=== PATIENT | female | born 1950 | race American Indian/Alaskan Native ===

== ENCOUNTER 2020-05-02 13:47 | Emergency (ER) | payer SELFPAY ==
[2020-05-02 15:02] VITALS: BP 123/46
--- NOTE | 2020-05-02 15:49 | XRay Report ---
RIGHT KNEE 4 VIEW(S) INDICATION / CLINICAL INFORMATION: dislocation injury COMPARISON: None available. FINDINGS: BONES / JOINT(S): Acute, comminuted, distracted, transverse fracture through the patella. Approximate ly 6.5 cm of distraction on flexion view and only 1-2 cm of distraction on extension view. Moderate d egenerative change. SOFT TISSUES: Mild hematoma and edema in the region of the fractured patella. ADDITIONAL FINDINGS: None. IMPRESSION: 1. Acute, comminuted, distracted, transverse fracture through the patella. Signer Name: Jonnathan Feng MD Signed: 05/02/2020 3:45 PM Workstation Name: [id number]
[2020-05-02] MEDS ORDERED: fentaNYL 100 MCG/2 ML INJ IV ONE (16:11)
[2020-05-02] MEDS ORDERED: oxyCODONE /ACETAMINOPHEN 5-325MG TAB PO ONE (16:37)
--- NOTE | 2020-05-02 16:50 | Emergency Department Report ---
ED Extremity Problem HPI - General Chief complaint: Extremity Injury, Lower Stated complaint: FALL RT KNEE INJURY Time Seen by Provider: 05/02/20 14:56 Source: patient Mode of arrival: Wheelchair Limitations: No Limitations - History of Present Illness Initial comments: Patient is a 69-year-old female presents to emergency department with complaint of right knee pain. She is also unable to extend her knee. Patient states that she tripped and fell over a bookshelf and then directly hit her right knee on the floor. She did not have loss of consciousness. She only reports right knee pain. She states she has been unable to walk due to her leg buckling. Severity scale (0 -10): 10 - Related Data Home Medications Medication Instructions Recorded Confirmed Last Taken Aspirin 10/24/15 10/24/15 Previous Rx's Medication Instructions Recorded Last Taken Type Clindamycin [Clindamycin CAP] 300 mg PO Q6H #40 capsule 10/24/15 Unknown Rx traMADoL [Ultram] 50 mg PO Q6HR PRN #12 tablet 10/24/15 Unknown Rx Ondansetron [Zofran Odt] 4 mg PO Q8HR PRN 7 Days #12 05/02/20 Unknown Rx tab.rapdis oxyCODONE /ACETAMINOPHEN [Percocet 1 tab PO Q6HR PRN 7 Days #28 tablet 05/02/20 Unknown Rx 5/325] Allergies Allergy/AdvReac Type Severity Reaction Status Date / Time No Known Allergies Allergy Verified 10/24/15 09:35 ED Review of Systems ROS: Stated complaint: FALL RT KNEE INJURY Other details as noted in HPI Constitutional: denies: diaphoresis Eyes: denies: eye discharge ENT: denies: throat pain Respiratory: denies: cough, shortness of breath Cardiovascular: denies: chest pain Endocrine: no symptoms reported Gastrointestinal: denies: abdominal pain, nausea, vomiting Genitourinary: denies: dysuria Musculoskeletal: as per HPI, joint swelling. denies: back pain Skin: denies: rash Neurological: denies: headache, weakness Psychiatric: denies: anxiety, depression Hematological/Lymphatic: denies: easy bleeding ED Past Medical Hx - Past Medical History Previous Medical History?: Yes Additional medical history: Sinusitis - Surgical History Past Surgical History?: No - Social History Smoking Status: Never Smoker Substance Use Type: None - Medications Home Medications: Home Medications Medication Instructions Recorded Confirmed Last Taken Type Aspirin 10/24/15 10/24/15 History Clindamycin [Clindamycin CAP] 300 mg PO Q6H #40 capsule 10/24/15 Unknown Rx traMADoL [Ultram] 50 mg PO Q6HR PRN #12 tablet 10/24/15 Unknown Rx Ondansetron [Zofran Odt] 4 mg PO Q8HR PRN 7 Days #12 05/02/20 Unknown Rx tab.rapdis oxyCODONE /ACETAMINOPHEN [Percocet 1 tab PO Q6HR PRN 7 Days #28 tablet 05/02/20 Unknown Rx 5/325] ED Physical Exam - General Limitations: No Limitations General appearance: alert, in no apparent distress - Head Head exam: Present: atraumatic, normocephalic - Eye Eye exam: Present: normal appearance Pupils: Present: normal accommodation - ENT ENT exam: Present: normal exam - Neck Neck exam: Present: normal inspection - Respiratory Respiratory exam: Present: normal lung sounds bilaterally. Absent: respiratory distress, chest wall tenderness - Cardiovascular Cardiovascular Exam: Present: regular rate, normal rhythm, normal heart sounds - GI/Abdominal GI/Abdominal exam: Present: soft. Absent: distended, tenderness - Rectal Rectal exam: Present: deferred - Expanded Lower Extremity Exam Right Knee exam: Present: tenderness, swelling, deformity, effusion. Absent: laceration, full knee extension - Back Exam Back exam: Present: normal inspection - Neurological Exam Neurological exam: Present: alert, oriented X3 - Psychiatric Psychiatric exam: Present: normal affect - Skin Skin exam: Present: warm, dry, intact ED Course Vital Signs 05/02/20 14:59 Temperature 98.6 F Pulse Rate 87 Respiratory 20 Rate Blood Pressure 123/46 O2 Sat by Pulse 97 Oximetry - Consultations Consultation #1: 05/02/20 16:56 Given patient's inability to extend her knee and her high riding patella I am concerned she could have a quadriceps tendon rupture. I have consulted Dr. Hill who will review patient's images and give recommendations. Consultation #2: 05/02/20 17:55 Plan for discharge with patient to follow-up with Dr. Hill on Monday in the office and possibly undergo surgery on . ED Medical Decision Making - Medical Decision Making 69-year-old female presents emergency department with complaint of right knee pain. Patient fell directly on her right knee. She is unable to extend the knee. X-ray shows patella fracture. I have also concerned that she could have a quadriceps tendon rupture. I have consulted Dr. Hill who will give further recommendations after reviewing the patient's images. Critical care attestation.: If time is entered above; I have spent that time in minutes in the direct care of this critically ill patient, excluding procedure time. ED Disposition Clinical Impression: Patella fracture Disposition: - TO HOME OR SELFCARE Is pt being admited?: No Does the pt Need Aspirin: No Condition: Stable Instructions: Patellar Fracture, Adult Prescriptions: oxyCODONE /ACETAMINOPHEN [Percocet 5/325] 1 tab PO Q6HR PRN 7 Days #28 tablet PRN Reason: Pain Ondansetron [Zofran Odt] 4 mg PO Q8HR PRN 7 Days #12 tab.rapdis PRN Reason: Nausea And Vomiting Referrals: PRIMARY CARE, [Primary Care Provider] - 3-5 Days UDAY HILL MD [Staff Physician] - [place] (Go on Monday, Likely to have surgery on )
== END 2020-05-02 18:44 | disposition home or self-care (01) ==
LOC: ED 13:47
DX: S82.001A Unspecified fracture of right patella, initial encounter for closed fracture (principal); Z79.899 Other long term (current) drug therapy; W17.89XA Other fall from one level to another, initial encounter; Y93.89 Activity, other specified; Y92.89 Other specified places as the place of occurrence of the external cause; Y99.8 Other external cause status
CPT/HCPCS: 73564; 99283; J3010

== ENCOUNTER 2020-09-09 13:15 | Outpatient (CLI) | payer MEDICAID, MEDICARE ==
[2020-09-09] MEDS ORDERED: LIDOCAINE (4%) 40 MG/ML TOPICAL SOLN 50 ML BOTTLE TP ONE (14:31)
== END 2020-09-09 13:16 | disposition home or self-care (01) ==
LOC: WOUND 13:15
PROVIDERS: ATTEND Surgery
DX: E11.622 Type 2 diabetes mellitus with other skin ulcer (principal); L97.213 Non-pressure chronic ulcer of right calf with necrosis of muscle; Z87.891 Personal history of nicotine dependence
CPT/HCPCS: 11043; G0463; 99214

== ENCOUNTER 2020-10-05 13:14 | Outpatient (CLI) | payer MEDICAID, MEDICARE ==
--- NOTE | 2020-10-05 14:20 | XRay Report ---
RIGHT KNEE 2 VIEWS INDICATION: unspecified fracture of right patella. COMPARISON: 06/08/2020. 06/11/2020. IMPRESSION: The previously described patellar fracture was internally fixated with 2 orthopedic scre ws on 06/11/2020. The lateral screw is fractured which is a new finding since surgery. The inferior p atellar fragment has dislodged from the hardware. There is 3.5 cm separation at the patellar fracture site on today's exam. The remaining bony structures are intact. Moderate tricompartmental osteoarthr itic changes are noted. Small to medium joint effusion. Signer Name: Eamon Nuñez Jr, MD Signed: 10/05/2020 2:15 PM Workstation Name: [id number]
== END 2020-10-05 13:15 | disposition home or self-care (01) ==
LOC: XRAY 13:14
PROVIDERS: ATTEND Orthopaedic Surgery
DX: S82.001A Unspecified fracture of right patella, initial encounter for closed fracture (principal); M17.11 Unilateral primary osteoarthritis, right knee; M25.461 Effusion, right knee; X58.XXXA Exposure to other specified factors, initial encounter; Y93.89 Activity, other specified; Y92.89 Other specified places as the place of occurrence of the external cause; Y99.8 Other external cause status

== ENCOUNTER 2020-10-14 10:12 | Outpatient (CLI) | payer MEDICAID, MEDICARE ==
[2020-10-14] MEDS ORDERED: LIDOCAINE (4%) 40 MG/ML TOPICAL SOLN 50 ML BOTTLE TP ONE (10:58)
== END 2020-10-14 10:13 | disposition home or self-care (01) ==
LOC: WOUND 10:12
PROVIDERS: ATTEND Surgery
DX: E11.622 Type 2 diabetes mellitus with other skin ulcer (principal); L97.213 Non-pressure chronic ulcer of right calf with necrosis of muscle; L84 Corns and callosities; Z87.891 Personal history of nicotine dependence

== ENCOUNTER 2020-10-21 10:50 | Outpatient (CLI) | payer MEDICAID, MEDICARE ==
[2020-10-21] MEDS ORDERED: LIDOCAINE (4%) 40 MG/ML TOPICAL SOLN 50 ML BOTTLE TP ONE (14:10)
== END 2020-10-21 10:51 | disposition home or self-care (01) ==
LOC: WOUND 10:50
PROVIDERS: ATTEND Surgery
DX: E11.622 Type 2 diabetes mellitus with other skin ulcer (principal); L97.212 Non-pressure chronic ulcer of right calf with fat layer exposed; L84 Corns and callosities; Z87.891 Personal history of nicotine dependence

== ENCOUNTER 2020-10-29 08:09 | Day surgery (SDC) | payer MEDICARE ==
[2020-10-27 12:10] LABS: BUN/Creatinine Ratio 36; Blood Urea Nitrogen 18 mg/dL (7-17); Calcium 9.5 mg/dL (8.4-10.2); Hemolysis Index 13
[2020-10-27 12:26] LABS: Hematocrit 32.7 % (30.3-42.9); Hemoglobin 10.9 gm/dl (10.1-14.3); Mean Corpuscular HGB Conc 33 % (30-34); Mean Corpuscular Volume 84 fl (79-97); Platelet Count 220 K/mm3 (140-440); Red Blood Count 3.89 M/mm3 (3.65-5.03); Red Cell Distribution Width 14.8 % (13.2-15.2)
[~2020-10-29 08:09] MED LIST: LIDOCAINE MPF (2%) 20 MG/1 ML VIAL 5 ML ONE; fentaNYL 100 MCG/2 ML INJ ONE; propofoL 200 MG/20 ML VIAL IV ONE
[2020-10-29] MEDS ORDERED: LACTATED RINGERS 1,000 ML IV SCH (08:30)
[2020-10-29] MEDS ORDERED: BACTERIOSTATIC SODIUM CHLORIDE 0.9% 30 ML VIAL INFILTRATI ONE (08:30)
[2020-10-29] MEDS ORDERED: MIDAZOLAM 2 MG/2 ML INJ IV SCH (09:00)
[2020-10-29] MEDS ORDERED: ceFAZolin/STERILE WATER 2 GM/20 ML SYRINGE IV SCH (09:00)
--- NOTE | 2020-10-29 09:04 | Anesthesia Day of Surgery ---
Anesthesia Day of Surgery - Day of Surgery Patient Examined: Yes Patient H&P Reviewed: Yes Patient is NPO: Yes
--- NOTE | 2020-10-29 09:05 | Anesthesia Consultation ---
Anesthesia Consult and Med Hx Date of service: 10/29/20 - Airway Anesthetic Teeth Evaluation: Good, Dentures, Edentulous (Upper) ROM Head & Neck: Adequate Mental/Hyoid Distance: Adequate Mallampati Class: Class II Intubation Access Assessment: Good - Pre-Operative Health Status ASA Pre-Surgery Classification: ASA2 Proposed Anesthetic Plan: General Nerve Block: Femoral (if needed) - Pulmonary Hx Smoking: Yes (STOPPED 1993) Hx Respiratory Symptoms: No (Active;+2FS) SOB: No Hx Sleep Apnea: (SELMA PRE SCREEN LOW RISK) - Cardiovascular System Hx Hypertension: No - Endocrine Hx Renal Disease: No Hx Liver Disease: No Hx Non-Insulin Dependent Diabetes: Yes Hx Thyroid Disease: No - Hematic Hx Anemia: No Hx Sickle Cell Disease: No - Other Systems Hx Alcohol Use: Yes (BEER) Hx Cancer: No Hx Obesity: No
[2020-10-29] MEDS ORDERED: MIDAZOLAM 2 MG/2 ML INJ ONE (09:07)
[2020-10-29] MEDS ORDERED: SODIUM CHLORIDE 0.9% IRR 1,000 ML BOTTLE IR ONE (09:53)
[2020-10-29] MEDS ORDERED: ONDANSETRON 4 MG/2 ML INJ IV PRN (10:00)
[2020-10-29] MEDS ORDERED: HYDROmorphone 1 MG/1 ML INJ IV PRN ×2 (10:00)
[2020-10-29] MEDS ORDERED: PHENYLEPHRINE/NS 1,000 MCG/10 ML SYRINGE (OR USE) IV ONE (10:19)
[2020-10-29] MEDS ORDERED: BUPIVACAINE/PF (0.5%) 5 MG/1 ML 30 ML VIAL INFILTRATI ONE (10:58)
[2020-10-29] MEDS ORDERED: dexAMETHasone 4 MG/ML VIAL ONE (10:58)
[2020-10-29] MEDS ORDERED: ONDANSETRON 4 MG/2 ML INJ ONE (11:17)
--- NOTE | 2020-10-29 12:39 | Procedure Note ---
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 Next the leg was then exsanguinated followed by inflation of the pneumatic tourniquet to 300 mmHg utilizing the previous midline incision this was then taken down sharply through skin and subcu care was taken to develop the skin flaps and more deeper level to prevent skin sloughing the patella patella tendon quad tendons were all seen patient was noted to have screws that were backing out the screws were removed in addition there was interposition scar tissue which was excised as well following this wound was copiously irrigated there was no signs of infection using a number oh 5 Ethibond suture a Fairchild type stitch was made in the patella tendon and utilizing the previous tunnel the #5 Ethibond sutures were placed through the patella proximally and was sewn down with the knee in full extension the patella tendon patella construct appeared stable next the parapatellar retinaculum was repaired with #1 Vicryl the skin was then closed in a standard routine fashion postop dressings were applied as well as a well- padded cylinder cast for postop immobilization patient tolerated the procedure there were no complications she was sent to postanesthesia recovery in a stable condition Anesthesia: MAC, regional Surgeon: UDAY ADEN (Dafne De Leon M.D. 1st assist) Estimated blood loss: minimal Pathology: list (Inferior pole patella, 1-1/2 screws) Specimen disposition: to lab Condition: stable Disposition: PACU
[2020-10-29 13:51] VITALS: BP 146/78
--- NOTE | 2020-10-29 14:16 | Post Anesthesia Evaluation ---
- Post Anesthesia Evaluation Patient Participated: Yes Airway Patent: Yes Stable Respiratory Function: Yes Nausea/Vomiting: No Temp > 96.8F: Yes Pain Manageable: Yes Adequeate Hydration: Yes Anesthesia Complications: No Block Receding Appropriately: Yes Patient on Ventilator: No
== END 2020-10-29 13:45 | disposition home or self-care (01) ==
LOC: OR 08:09
PROVIDERS: ATTEND Orthopaedic Surgery
DX: S82.091 Other fracture of right patella (principal); Z20.822 Contact with and (suspected) exposure to COVID-19; E78.00 Pure hypercholesterolemia, unspecified; G47.30 Sleep apnea, unspecified; M19.90 Unspecified osteoarthritis, unspecified site; E11.9 Type 2 diabetes mellitus without complications; Z72.89 Other problems related to lifestyle; Z79.899 Other long term (current) drug therapy; Z79.84 Long term (current) use of oral hypoglycemic drugs; Z87.891 Personal history of nicotine dependence; Z91.81 History of falling; X58.XXXD Exposure to other specified factors, subsequent encounter
CPT/HCPCS: 27524; 36415; 64447; 80048; 82962; 85027; 88300; 88304; 88311; J0690; J1100; J2250; J2370; J2405; J2704; J3010; J7120; U0003; 88302

== ENCOUNTER 2021-01-13 13:19 | Outpatient (CLI) | payer MEDICARE, MEDICAID ==
[2021-01-13] MEDS ORDERED: LIDOCAINE (4%) 40 MG/ML TOPICAL SOLN 50 ML BOTTLE TP ONE (14:00)
== END 2021-01-13 13:20 | disposition home or self-care (01) ==
LOC: WOUND 13:19
PROVIDERS: ATTEND Surgery
DX: E11.622 Type 2 diabetes mellitus with other skin ulcer (principal); L97.218 Non-pressure chronic ulcer of right calf with other specified severity; Z87.891 Personal history of nicotine dependence; Z79.84 Long term (current) use of oral hypoglycemic drugs
CPT/HCPCS: G0463-25

== ENCOUNTER 2021-06-09 16:28 | Emergency (ER) | payer MEDICARE ==
[2021-06-09] MEDS ORDERED: predniSONE 20 MG TAB PO ONE (19:00)
[2021-06-09] MEDS ORDERED: KETOROLAC 10 MG TAB PO ONE (19:00)
[2021-06-09] MEDS ORDERED: CYCLOBENZAPRINE 10 MG TAB PO ONE (19:00)
--- NOTE | 2021-06-09 19:06 | Emergency Department Report ---
ED Neck Pain/Injury HPI - General Chief Complaint: Pain General Stated Complaint: PAIN IN LT LEG Time Seen by Provider: 06/09/21 18:59 Mode of arrival: Ambulatory Limitations: No Limitations - History of Present Illness Initial Comments: 70-year-old black female with a past medical history of diabetes and hyperlipidemia presents to the emergency department for 4-day history of left neck pain that radiates down her left arm into her elbow along with left upper back pain. She denies any injury but states that the pain is worse with movement and is better if she holds her hand over her head. She describes the pain as a deep ache that feels like burning numbness and tingling. She denies chest pain shortness of breath nausea vomiting and dizziness. MD Complaint: neck pain, upper back pain -: Gradual, days(s) (4) Place: home Radiation: left shoulder, upper back, left upper extremity Severity: severe Severity scale (0 -10): 10 Quality: burning, aching, tingling Consistency: constant Improves With: other (Certain movement) Worsens With: movement of extremity, movement of neck Associated Symptoms: numbness, tingling. denies: headache, fever, weakness, nausea, vomiting - Related Data Home Medications Medication Instructions Recorded Confirmed Last Taken metFORMIN [Glucophage] 500 mg PO QDAY 10/22/20 10/29/20 10/28/20 Previous Rx's Medication Instructions Recorded Last Taken Type oxyCODONE /ACETAMINOPHEN [Percocet 1 tab PO Q6HR PRN #30 tablet 10/29/20 Unknown Rx 5/325] Cyclobenzaprine HCl [Flexeril 5 MG 5 mg PO TID PRN #21 tab 06/09/21 Unknown Rx TAB] Naproxen [Naprosyn] 500 mg PO BID #14 tab 06/09/21 Unknown Rx methylPREDNISolone [Medrol 4MG 4 mg PO DAILY #1 pack 06/09/21 Unknown Rx DOSEPAK (21 tabs)] Allergies Allergy/AdvReac Type Severity Reaction Status Date / Time No Known Allergies Allergy Verified 06/09/21 18:20 ED Review of Systems ROS: Stated complaint: PAIN IN LT LEG Other details as noted in HPI Comment: All other systems reviewed and negative Constitutional: no symptoms reported Respiratory: no symptoms reported. denies: shortness of breath Cardiovascular: denies: chest pain, palpitations Endocrine: no symptoms reported Gastrointestinal: denies: abdominal pain, nausea, vomiting Musculoskeletal: back pain Skin: denies: rash, lesions ED Past Medical Hx - Past Medical History Previous Medical History?: Yes Hx Hypertension: Yes Hx Diabetes: Yes Hx Liver Disease: No Hx Renal Disease: No Hx Sickle Cell Disease: No Hx Arthritis: Yes Additional medical history: Sinusitis - Social History Smoking Status: Former Smoker - Medications Home Medications: Home Medications Medication Instructions Recorded Confirmed Last Taken Type metFORMIN [Glucophage] 500 mg PO QDAY 10/22/20 10/29/20 10/28/20 History oxyCODONE /ACETAMINOPHEN [Percocet 1 tab PO Q6HR PRN #30 tablet 10/29/20 Unknown Rx 5/325] Cyclobenzaprine HCl [Flexeril 5 MG 5 mg PO TID PRN #21 tab 06/09/21 Unknown Rx TAB] Naproxen [Naprosyn] 500 mg PO BID #14 tab 06/09/21 Unknown Rx methylPREDNISolone [Medrol 4MG 4 mg PO DAILY #1 pack 06/09/21 Unknown Rx DOSEPAK (21 tabs)] ED Physical Exam - General Limitations: No Limitations General appearance: alert, in no apparent distress - Head Head exam: Present: atraumatic, normocephalic - Eye Eye exam: Present: normal appearance. Absent: conjunctival injection - Neck Neck exam: Present: normal inspection, tenderness, other (tender to touch on left side and pressing area makes left arm throbb). Absent: full ROM, lymphadenopathy - Respiratory Respiratory exam: Present: normal lung sounds bilaterally. Absent: respiratory distress, chest wall tenderness, accessory muscle use - Cardiovascular Cardiovascular Exam: Present: regular rate, normal heart sounds - GI/Abdominal GI/Abdominal exam: Present: soft, normal bowel sounds. Absent: distended, tenderness, guarding, rebound - Expanded Upper Extremity Exam Left Shoulder Exam: Present: normal inspection, tenderness. Absent: full ROM Upper Arm exam: Present: normal inspection, tenderness. Absent: swelling Vascular: Present: normal capillary refill, radial pulse. Absent: vascular compromise - Back Exam Back exam: Present: tenderness (Left upper). Absent: CVA tenderness (R), CVA tenderness (L) - Neurological Exam Neurological exam: Present: alert, oriented X3 - Psychiatric Psychiatric exam: Present: normal affect, normal mood - Skin Skin exam: Present: warm, dry, intact ED Course Vital Signs 06/09/21 06/09/21 18:17 19:48 Temperature 98.1 F 98.5 F Pulse Rate 99 H 96 H Respiratory 12 17 Rate Blood Pressure 193/106 Blood Pressure 180/93 [Right] O2 Sat by Pulse 99 97 Oximetry ED Medical Decision Making - Medical Decision Making 70-year-old black female with a past medical history of diabetes and hyperlipidemia presents to the emergency department for 4-day history of left neck pain that radiates down her left arm into her elbow along with left upper back pain. She denies any injury but states that the pain is worse with movement and is better if she holds her hand over her head. She describes the pain as a deep ache that feels like burning numbness and tingling. She denies chest pain shortness of breath nausea vomiting and dizziness. Pain and assessment consistent with cervical radicular pain. Patient will be treated with Medrol Dosepak anti-inflammatories and muscle relaxants. She was advised to monitor blood glucose closely while taking steroids. She was advised to follow-up with primary care provider or orthopedics if no improvement or worsening symptoms. Plan reviewed with patient and she verbalized understanding and agreement with. Critical care attestation.: If time is entered above; I have spent that time in minutes in the direct care of this critically ill patient, excluding procedure time. ED Disposition Clinical Impression: Cervical radicular pain Disposition: 01 HOME / SELF CARE / HOMELESS Is pt being admited?: No Does the pt Need Aspirin: No Condition: Stable Instructions: Cervical Radiculopathy Additional Instructions: Take medications as prescribed. Monitor blood sugar closely while taking steroids. Follow-up with primary care provider if no improvement or worsening symptoms. Prescriptions: Cyclobenzaprine HCl [Flexeril 5 MG TAB] 5 mg PO TID PRN #21 tab PRN Reason: Pain , Severe (7-10) methylPREDNISolone [Medrol 4MG DOSEPAK (21 tabs)] 4 mg PO DAILY #1 pack Naproxen [Naprosyn] 500 mg PO BID #14 tab Referrals: PRIMARY CARE, [Primary Care Provider] - 3-5 Days Time of Disposition: 19:05
[2021-06-09 19:54] VITALS: BP 180/93
== END 2021-06-09 19:48 | disposition home or self-care (01) ==
LOC: ED 16:28
DX: M54.12 Radiculopathy, cervical region (principal); E11.9 Type 2 diabetes mellitus without complications; E78.5 Hyperlipidemia, unspecified; I10 Essential (primary) hypertension; M19.90 Unspecified osteoarthritis, unspecified site; Z87.891 Personal history of nicotine dependence
CPT/HCPCS: 99282